=== PATIENT | female | born 1970 | race Caucasian/White ===

== ENCOUNTER 2016-12-27 17:16 | Inpatient (IN) | payer OTHER ==
--- NOTE | ~2016-12-27 | DS ---
Unit #: [id number] #: [id number] Patient: FIDEL BERNARD [id number] [place] [address] [id number] I MR#: [id number] NAME: FIDEL BERNARD ROOM: P208 Age: 46 Sex: F Admission Date: 12/27/2016 : 1970 Discharge Date: 12/31/2016 Attending Physician: Conor Griffiths M.D. Primary Care Physician: Honey Whitfield M.D. DISCHARGE SUMMARY REASON FOR ADMISSION Alcohol dependency and significant depression. DIAGNOSTIC STUDIES PERTINENT LABORATORY DATA: The patient had routine blood work which included CMP that was well within normal parameters with the exception of AST elevated to 92, ALT of 199, alkaline phosphatase of 147. The rest of numbers were consistent with alcohol abuse. She had a CBC that was within normal parameters exception of the MCV of 104.1, MCH of 34.9, RDW 15.8 again and keeping with alcohol abuse dependency. RPR was nonreactive. Urine toxicology was negative. Urinalysis showed 2 plus leukocyte esterase, 0.2 urobilinogen but no bacterial infection. No other abnormalities noted in testing. HOSPITAL COURSE The patient was admitted for safety and stabilization for these issues with depression and alcohol dependency. The patient was placed on CIWA and monitored accordingly. She had various symptoms including aches, pains, poor sleep, upset stomach, headaches, depression obviously anxiety, stress, tremors and diaphoresis. The patient had a bit of protracted experience with these fortunately they had improved prior to discharge. She did well with the detox medications however there was a quite a bit of medication seeking behavior on her part in terms of the Ativan but she followed direction from staff appropriately and there was no acting out or other behavioral problems. The patient was also assisted with depression during this stay in which she was started on Prozac 20 mg daily and Seroquel it was titrated up to 25 mg in the morning and 400 mg at bedtime. The patient was kept on her home meds of metoprolol and Protonix for hypertension and GERD respectively and was also given p.r.n. Vistaril 50 mg every six hours as needed for break through anxiety. In keeping with her home medications and these additional new medications for her mood, the patient did very well. Over the course of hospitalization her mood rapidly improved. There had been some note of suicidal ideation upon admission but that quickly resolved and had been gone for at least 24 to 48 hours prior to discharge. The patient in a family session on day of discharge seemed to be cathartic. The patient was reporting that she was improving, still had some anxiety and mood issues, but physically felt like much better. Still having some sleep disturbance but was improving compared to upon admission. Overall patient seemed to be making mood progress. She was no longer having any active SI and she wanted to leave the hospital with her family and it was felt that she was appropriate to do so. The patient was encouraged to followup at [facility] Unit #: [id number] #: [id number] Patient: FIDEL BERNARD outpatient programs as been discussed with the clinical social worker here in the hospital with the primary care doctor for additional medication monitoring given her history of drinking all of which she agreed with. DISCHARGE DIAGNOSES 1. Alcohol dependency with withdrawal 2. Major depressive disorder recurrent moderate 3. Hypertension. 4. GERD. FOLLOWUP CARE For the patient to go home with family and follow up with [facility] outpatient CD programs as per clinical social worker and utilization. DISCHARGE MEDICATIONS 1. Metoprolol 50 mg twice a day for hypertension 2. Protonix over the counter daily for GERD 3. Prozac 20 mg daily for depression and anxiety 4. Seroquel 25 mg every morning and 400 mg at night for depression 5. Vistaril 50 mg every six hours as needed for breakthrough anxiety. CONDITION AT DISCHARGE Improving. PROGNOSIS Guarded given the patient's history of long standing alcohol use and this is her first bout of detox treatment. DIET AND ACTIVITY Diet is heart healthy. Activity is as tolerated. Dictated by... Conor Griffiths M.D. SAMANTHA/delia TD: 01/01/2017 02:10 JOB #: [id number] DISCHARGE SUMMARY Page 1 of 1 X Conor Griffiths MD X DISCHARGE SUMMARY
--- NOTE | ~2016-12-27 | PA ---
Unit #: [id number] #: [id number] Patient: FIDEL BERNARD [id number] [place] [address] [id number] I MR#: [id number] NAME: FIDEL BERNARD ROOM: P208 Age: 46 Sex: F Admission Date: 12/27/2016 : 1970 Date of Assessment: Attending Physician: Conor Griffiths M.D. Admitting Physician: Conor Griffiths M.D. Primary Care Physician: Honey Whitfield M.D. PSYCHIATRIC ASSESSMENT DATE OF SERVICE 12/28/2016. LOCATION [facility], [address] [place] [address], [address], bed #2. INFORMANTS Patient and chart, both seem reliable. CHIEF COMPLAINT "I got to stop drinking." HISTORY OF PRESENT ILLNESS This is a 46-year-old white female, who presents here with ongoing issues with alcohol dependency, going back several months, if not longer. The patient has been drinking nearly 2 pints a day for an indeterminate amount of time, at the very least, several weeks, if not several months. The patient reports now because she is reporting that she has to keep drinking or just not to feel bad. She has never been through treatment before for detox. She is aware of the danger and they is why she is here in the hospital. Apparently, when in the emergency room, she had made comments about having suicidal ideations recently, but denied any of them now or any time upon admission. She does have a history of depression that she has not been treating for several years now, hence part of the reason why she drinks. She denies any other illicit drugs on a routine basis. She was very focused on recovery not only of her mental health issues, chemical dependency, but as well as her physical as her blood pressure seems to be chronically impaired. No other complaints at this time. PAST PSYCHIATRIC HISTORY Treated outpatient by therapy and psychiatric care with medications in the past, has not had a psychiatrist in nearly a decade. Has been in therapy since then, but again several years since that was the case. No history of inpatient admission. Seems to have history of depression with intermittent SI. No history of suicide attempts. No history of psychiatric admissions. No history of HI or psychosis. FAMILY HISTORY Significant for widespread chemical dependency and mood disorder issues in pretty much all family members, she reported. SOCIAL HISTORY She says she is , one child. Intermittent employment. Limited Unit #: [id number] #: [id number] Patient: FIDEL BERNARD. MEDICAL HISTORY Significant for hypertension, obesity, GERD. MEDICATION HISTORY Includes Protonix 40 mg daily, Lopressor 50 mg b.i.d. ALLERGIES Include no known drug allergies. SUBSTANCE ABUSE HISTORY As noted above. No previous treatment inpatient or out in terms of chemical dependency. No overt history of seizures. No history of hospitalizations or medical issues otherwise. Nicotine dependency is also in the situation. The patient smokes a pack and half a day. MENTAL STATUS EXAM General appearance is a limitedly groomed white female, appears older than stated age. Fairly cooperative, responsive with good eye contact. Speech was clear and coherent. Well prosody. Mood was dysphoric with a constricted affect. Thought process and content are grossly organized and linear. No overt evidence of psychosis, SI or HI. The patient is at this time. The patient's memory is grossly intact. Associations are normal. Cognitive functioning is at baseline. Alert and oriented x4. Insight and judgment are limited regarding some substance abuse. ASSETS AND LIABILITIES Assets include insight about the substance issues. Liabilities include limited support. No previous exposure to treatment. Limited employment. ADMITTING DIAGNOSES 1. Alcohol dependency with withdrawal. 2. Major depressive disorder, recurrent, moderate. 3. Hypertension. 4. Gastroesophageal reflux disease. 5. Nicotine dependency. PSYCHIATRIC PLAN Continue the patient's admission for safety and stabilization for ongoing issues with alcohol dependency and withdrawal. The patient is on appropriate protocols at this time and we will monitor accordingly. The patient also will be seen by Internal Medicine because of ongoing issues with blood pressure management instability. The patient will also be restarted on Prozac 20 mg daily by mouth. She had been on this in the past and had a positive response. The patient's trazodone was ineffective, so will be discontinued in place of 100 mg of Seroquel at bedtime. This also should be helpful with her mood. Treatment goal will be resolution of symptoms in a safe controlled environment with discharge planning requiring community resources and hopeful IOP if not residential treatment if applicable. ESTIMATED LENGTH OF STAY Approximately 4 to 5 days depending on the patient's progress and response to treatment. Unit #: [id number] #: [id number] Patient: FIDEL BERNARD Dictated by... Aimee Guerrero/yakov TD: 12/29/2016 01:58 JOB #: [id number] PSYCHIATRIC ASSESSMENT Page 1 of 1 X Conor Griffiths MD PSYCHIATRIC ASSESSMENT
--- NOTE | ~2016-12-27 | HP ---
Unit #: [id number] #: [id number] Patient: MELISSA BERNARD [id number] [place] [address] [id number] I MR#: [id number] NAME: MELISSA BERNARD ROOM: P208 Age: 46 Sex: F Admission Date: 12/27/2016 : 1970 Attending Physician: Conor Griffiths M.D. Admitting Physician: Conor Griffiths M.D. Primary Care Physician: Honey Whitfield M.D. HISTORY AND PHYSICAL HISTORY OF PRESENT ILLNESS Melissa is a 46 year old admitted to [address] [place] [address] because of her abuse of alcohol. PAST MEDICAL HISTORY 1. Long history of alcohol abuse. 2. Morbid obesity. 3. High blood pressure. 4. History of fatty liver. 5. Eczema. PAST SURGICAL HISTORY 1. T and A. 2. Tubal ligation. 3. Hysterectomy. ALLERGIES No known drug allergies. SOCIAL HISTORY Smokes 1 pack per day. Drinks 2 pints of liquor on a daily basis. Denies illicit drug use. FAMILY HISTORY Medically noncontributory. REVIEW OF SYSTEMS CONSTITUTIONAL: No fever or chills. HEENT: Denies any sore throat, ear pain or runny nose. CARDIOVASCULAR: Denies chest pain, irregular heart rhythm or palpitations. CHEST: Denies shortness of breath or cough. No hemoptysis. GASTROINTESTINAL: Denies nausea, vomiting, diarrhea or chronic constipation. ENDOCRINE: Denies history of increased thirst or urination. No recent significant weight loss or gain. GENITOURINARY: Denies dysuria, frequency, or hematuria. SKIN: Denies any rashes. HEMATOLOGIC: Denies history of increased bleeding or bruising. MUSCULOSKELETAL: Denies any hot, swollen joints. No generalized muscle pain. NEUROLOGIC: Denies problems with vision or speech. No frequent, severe headaches. No numbness, tingling or weakness in any extremities. Denies loss of bladder or bowel control. Unit #: [id number] #: [id number] Patient: MELISSA BERNARD CURRENT MEDICATIONS 1. Detox protocol. 2. Seroquel 100 mg q.h.s. 3. Prozac 20 mg daily. 4. Lopressor 50 mg b.i.d. 5. Nicotine patch 21 mg daily. PHYSICAL EXAMINATION GENERAL: Alert, obese, in no apparent distress. VITAL SIGNS: Blood pressure 140/92, heart rate 80, respirations 16, temperature 98.6. WEIGHT: 219 pounds. HEIGHT: 5 feet 6 inches. SKIN: Warm and dry without rash or lesion. HEENT: Normocephalic. TMs not viewed. Oral and nasal passages clear. Conjunctivae clear. PERRLA. EOMs intact. NECK: Supple without lymphadenopathy or thyromegaly. HEART: Regular rate and rhythm without murmur. LUNGS: Clear. ABDOMEN: Soft, nontender. : Not done. EXTREMITIES: No evidence of cyanosis, clubbing or edema. Moves all without focal deficit. NEUROLOGICAL: Grossly within normal limits. Cranial Nerves: II: Visual goncalves are intact. III, IV AND : Extraocular movements are intact. Pupils are equal, round and reactive to light. V: Facial sensation is grossly normal. VII: Facial movements and expression are normal. VIII: Auditory acuity grossly intact. IX, X: Uvula is midline. Phonation is normal. XI: Patient shrugs shoulders and turns head normally. XII: Tongue protrudes in the midline. Sensory and Motor Function: Sensory and motor sensation is grossly normal. Motor: moves all extremities well. Coordination: Gait is normal. Deep Tendon Reflexes: Intact. IMPRESSION Psychiatric admission. RECOMMENDATIONS PSYCHIATRIC: Per psychiatrist. MEDICAL: See no contraindications to participate in facility's activities. MEDICAL PROGNOSIS Good. MEDICAL CONDITION Stable. Dictated by... Marleny Romero P.A.-C. for Aimee Metzger/ten TD: 12/28/2016 22:00 Unit #: [id number] #: [id number] Patient: MELISSA BERNARD JOB #: [id number] HISTORY AND PHYSICAL Page 1 of 1 X Marleny Romero HISTORY AND PHYSICAL
--- NOTE | ~2016-12-27 | PN ---
Unit #: [id number] #: [id number] Patient: FIDEL BERNARD [id number] [place] [address] [id number] I MR#: [id number] NAME: FIDEL BERNARD ROOM: P208 Age: 46 Sex: F Admission Date: 12/27/2016 : 1970 Attending Physician: Conor Griffiths M.D. Admitting Physician: Conor Griffiths M.D. Primary Care Physician: Honey Whitfield M.D. [facility] PROGRESS NOTES DATE OF SERVICE: 12/30/2016 LOCATION [facility], [address] [place] [address], room #208, bed #2. SUBJECTIVE This is a 46-year-old, white female who is here with ongoing issues of significant protracted alcohol withdrawal. The patient continues to report any issues with intermittent poor sleep, anxiety, tremors, upset stomach, diarrhea, headache. Vital signs show blood pressure is still slightly elevated at 130/89 despite medications, pulse of 129. The patient did sleep somewhat better with the improvement with the Seroquel, but still was only limited improvement. Mood still remains very depressed and anxious, but no active SI today. MENTAL STATUS EXAMINATION General appearance; this is a moderately groomed white female, fairly isolative to self per report. Speech was clear and coherent, normal prosody. Mood was depressed and anxious with a less labile affect today. Thought process and content were grossly organized and linear. No overt evidence of psychosis. No active SI today. No HI. The patient's memory is grossly intact. Associations are normal. Cognitive function is at baseline. She is alert and oriented x4. Insight and judgment are limited, but improving. RECOMMENDATIONS We will continue the patient's admission for ongoing issues with significant detox symptoms as well as mood problems. We will increase the patient's Seroquel tonight for 200 to 400 mg to much better augment her mood needs and sleep requirements, and continue to monitor accordingly, the patient's symptoms are slowly making progress, but overall she is still unstable placing very high risk for further decompensation if not treated accordingly. We will monitor and make further adjustments as needed. Dictated by... Conor Griffiths M.D. SB/charbell TD: 12/30/2016 14:16 Unit #: [id number] #: [id number] Patient: MARCO ANTONIOFIDEL JOB #: [id number] [facility] PROGRESS NOTES Page 1 of 1 X Conor Griffiths MD PROGRESS NOTE
--- NOTE | ~2016-12-27 | CO ---
Unit #: [id number] #: [id number] Patient: MELISSA BERNARD [id number] [place] [address] [id number] I MR#: [id number] NAME: MELISSA BERNARD ROOM: P208 Age: 46 Sex: F Admission Date: 12/27/2016 : 1970 Attending Physician: Conor Griffiths M.D. Primary Care Physician: Honey Whitfield M.D. Consultation Date: 12/28/2016 CONSULTATION REPORT SUBJECTIVE Melissa is a 46-year-old admitted because of her abuse of alcohol. She also has a history of high blood pressure. Home medication included Lopressor 50 mg b.i.d. We have been asked to review her blood pressures and give recommendations. At time of admission, blood pressures are running 140/100, 140/92, 134/94. At the completion of her detox 4 days later, blood pressures were running in 130/80. We did not change her blood pressure medication and she was maintained on the Lopressor b.i.d. She knows to follow up with her primary care physician for any concerns. Dictated by... Marleny Romero P.A.-C. for Aimee Metzger/yakov TD: 01/01/2017 22:40 JOB #: [id number] CONSULTATION REPORT Page 1 of 1 X Marleny Romero CONSULTATION REPORT
--- NOTE | ~2016-12-27 | PN ---
Unit #: [id number] #: [id number] Patient: FIDEL BERNARD [id number] [place] [address] [id number] I MR#: [id number] NAME: FIDEL BERNARD ROOM: P208 Age: 46 Sex: F Admission Date: 12/27/2016 : 1970 Attending Physician: Conor Griffiths M.D. Admitting Physician: Conor Griffiths M.D. Primary Care Physician: Honey Whitfield M.D. [facility] PROGRESS NOTES DATE OF SERVICE: 12/29/2016 LOCATION [facility] [place] [address], room #208, bed #2. SUBJECTIVE This is a 46-year-old white female with ongoing issues of alcohol dependency and detox issues as well as notable depression. The patient reports still feeling poorly today in terms of anxiety, stress, tremorous, diaphoretic, says sleep was somewhat better last night with the medications, but still noticeably having problems with headaches, irritability, and feeling "like a caged bird." Denied any overt SI today, but still reporting hopelessness and not sure if she needs to "be here in terms of alive." Regardless though, denies any active SI to harm herself. Had positive supportive discussion with the patient about the need for care and treatment and additional changes to treat to form some med seeking reported by staff. MENTAL STATUS EXAMINATION General appearance; she is a moderately groomed white female in home pajamas, fairly responsive, good eye contact, process of tremor in hands as noted. Speech was clear and coherent. Mood was anxious and depressed with a constricted affect. Thought process and content are grossly organized and linear. No overt evidence of psychosis, some hopelessness, but no active SI, no HI. The patient's memory was grossly intact. Associations were normal. Cognitive function was at baseline. Alert and oriented x4. Insight and judgment are limited, but improving. ASSESSMENT AND RECOMMENDATIONS We will continue the patient's admission for ongoing issues with detox issues as noted above. The patient is continuing to receive p.r.n. Ativan for symptoms. We will increase h.s. Seroquel 25 mg daily dose to help with mood issues and anxiety and TODAY as well as add Vistaril 50 mg every 6 hours as needed for breakthrough stress. The patient educated about all these changes and was in agreement. The patient encouraged to cooperate with groups and activities and continue with the detox process. Dictated by... Conor Griffiths M.D. /yakov Unit #: [id number] #: [id number] Patient: FIDEL BERNARD TD: 12/30/2016 01:01 JOB #: [id number] [facility] PROGRESS NOTES Page 1 of 1 X Conor Griffiths MD X PROGRESS NOTE
[~2016-12-27 17:16] MED LIST: BACLOFEN10 MG PO; CARAFATE1 G PO; COLACE PO; DEMADEX10 MG PO; DURAGESIC1 EAC1 TD; DURAGESIC25 MCG TD; FLEXERIL10 M1 PO; FLEXERIL10 MG PO; FLUOXETINE HCL20 M1 PO; GABAPENTIN400 M2 PO; HYDROCODON-ACE1 EAC5 PO; K-DUR20 ME1 PO; K-LOR20 MEQ PO; LEVAQUIN250 MG/10 PO; MIRALAX17 GM PO; MIRTAZAPINE45 M1 PO; MOTRIN600 MG PO; NEURONTIN300 MG PO; NICOTINE TRANSD21 MG EXT; PHENERGAN25 MG PO; PROTONIX PO; PROTONIX40 MG/BLIS PO; REMERON30 MG PO; TOPAMAX PO; VENTOLIN5 MG/ML IH; XANAX1 MG PO
[2016-12-28 09:51] LABS: BASOPHIL# 0.1 X10e3 (0-0.3); BASOPHIL% 0.7 % (0-2.5); EOSINOPHIL# 0.1 X10e3 (0-0.7); HEMATOCRIT 41.4 % (35.0-45.0); HEMOGLOBIN 13.9 gm/dL (12.0-16.0); LYMPHOCYTE# 1.3 X10e3 (1.0-3.5); LYMPHOCYTE% 17.3 % (17.0-45.0); MEAN CELL VOLUME 104.1 FL (83-96); MEAN CORPUSCULAR HEMOGLOBIN 34.9 PG (28-34); MEAN CORPUSCULAR HGB CONC 33.5 g/dL (30-36); MEAN PLATELET VOLUME 9.7 FL (6.5-11.5); MONOCYTE# 0.4 X10e3 (0-1.0); MONOCYTE% 5.8 % (3.0-12.0); NEUTROPHIL# 5.6 X10e3 (1.5-7.1); NEUTROPHIL% 75.2 % (40-75); PLATELET COUNT 202 X10e3 (140-420); RED BLOOD COUNT 3.98 X10e (3.90-5.30); RED CELL DISTRIBUTION WIDTH 15.8 % (11.0-15.5); WHITE BLOOD COUNT 7.4 X10e3 (4.0-10.5)
[2016-12-28 09:57] LABS: ALBUMIN SERUM 4.2 g/dL (3.5-5.0); BILIRUBIN,TOTAL 1.7 mg/dL (0.2-2.0); CALCIUM SERUM 9.8 mg/dL (8.4-10.2); POTASSIUM 3.7 mmol/L (3.5-5.1)
[2016-12-28 09:58] LABS: DIFF IND NO
[2016-12-28 09:58] LABS: URINE APPEARANCE CLEAR; URINE BILIRUBIN NEG (NEG); URINE BLOOD NEG (NEG); URINE COLOR YELLOW; URINE GLUCOSE NEG (NEG); URINE KETONE NEG (NEG); URINE LEUKOCYTE ESTERASE 2+ (NEG); URINE NITRATE NEG (NEG); URINE PH 5.5 (5-8); URINE PROTEIN NEG (NEG); URINE SPECIFIC GRAVITY 1.007 (1.003-1.035); URINE UROBILINOGEN 0.2 MG/DL (NEG)
[2016-12-28 10:05] LABS: URBCS1 AUWI 0-2 /[HPF] (0-2); URINE BACTERIA AUWI 2+ (NEGATIVE); URINE SQUAMOUS EPITHELIAL CELL FEW /[HPF]
[2016-12-28 10:33] LABS: AMPHETAMINE NEG (NEG); BARBITURATES NEG (NEG); BENZODIAZEPINES NEG (NEG); COCAINE NEG (NEG); MARIJUANA NEG (NEG); OPIATES NEG (NEG); TRICYCLIC ANTIDEPRESSANTS NEG (NEG); U METHADONE NEG (NEG)
[2017-01-02 01:40] LABS: HA AB IGM (HEPPAN) Nonreactive (()); HB CORE AB IGM (HEPPAN) Nonreactive (Nonreactive); HB S AG (HEPPAN) Nonreactive (Nonreactive); HEP C AB (HEPPAN) Nonreactive (Nonreactive); HEP C AB SIGNAL TO CUTOFF 0.01 ratio (<1.00)
== END 2016-12-31 13:04 | disposition home or self-care (01) | DRG 897 ==
LOC: P2S 19:38
PROVIDERS: Psychiatry & Neurology Psychiatry
PROC: HZ2ZZZZ Detoxification Services for Substance Abuse Treatment (ICD-10-PCS; principal; 2016-12-27)
DX: F10.239 Alcohol dependence with withdrawal, unspecified (principal); F33.1 Major depressive disorder, recurrent, moderate; I10 Essential (primary) hypertension; K21.9 Gastro-esophageal reflux disease without esophagitis; F17.210 Nicotine dependence, cigarettes, uncomplicated
CPT/HCPCS: 80053; 80074; 80307; 81003; 85025; 86592